=== PATIENT | male | born 1975 | race Caucasian/White ===

== ENCOUNTER 2019-02-06 09:39 | Outpatient (CLI) | payer BC ==
[2019-02-06 10:42] LABS: ALBUMIN 4.3 g/dL (3.4-5.0); BILIRUBIN,TOTAL 0.7 mg/dL (0.2-1.0); CREATININE 1.2 mg/dL (0.6-1.3); TOTAL PROTEIN, SERUM 7.6 g/dL (6.4-8.2)
== END 2019-02-06 23:59 | disposition home or self-care (01) ==
LOC: LAB 09:39
PROVIDERS: ATTEND Family Medicine
DX: Z11.59 Encounter for screening for other viral diseases (principal); E78.2 Mixed hyperlipidemia
CPT/HCPCS: 36415; 80053-TC; 80061-TC; 86709-TC

== ENCOUNTER 2019-02-18 10:04 | Outpatient (CLI) | payer BC ==
[2019-02-19 12:10] LABS: *MUMPS AB (IGG) 47.9 AU/mL (Immune >10.9); *RUBEOLA AB (IGG) >300.0 AU/mL (Immune >29.9)
== END 2019-02-18 23:59 | disposition home or self-care (01) ==
LOC: LAB 10:04
PROVIDERS: ATTEND Family Medicine
DX: Z11.59 Encounter for screening for other viral diseases (principal)
CPT/HCPCS: 36415; 86593; 86735; 86762; 86765; 86803; 87340; 87806